=== PATIENT | male | born 1970 | race Caucasian/White ===

== ENCOUNTER → 2019-10-20 | Outpatient (CLI) | payer OTHER ==
[~2019-10-20] MED LIST: FLEXERIL PO; IBUPROFEN 800800 M1 PO; PERCOCET 5-3251 EACH PO
--- NOTE | 2019-10-27 16:05 | SLEEP ---
[address] [address] SLEEP STUDY REPORT Name: LUCERO JIANG Room: [facility]#: [id number] Admission: 10/20/19 Attend Phys: Mahnaz Omer Discharge: Date of : 70 Report #: [id number] THIS REPORT FOR: //name// CC: Jean Marie Mcdaniel DO This study has been reviewed in its entirety by a board certified sleep specialist DATE OF SERVICE: 10/21/2019 HOME SLEEP STUDY REFERRING PHYSICIAN: Dr. Jean Marie Mcdaniel. HISTORY: The patient is a 49-year-old who weighs 252 pounds with a BMI of 34.2. The patient's Lugoff score was 13. The patient underwent home sleep study performed by [facility]. Total recording time was 465 minutes. During the night study, the patient had 280 obstructive apneas, 67 central apneas, 210 mixed apneas and 24 hypopneas. The patient's apnea hypopnea index was 76.7 per hour. Supine index was the same. Nocturnal oximetry study revealed an average oxygen saturation of 88% with a lowest of 64%. A 231 minutes were spent and oxygen saturation less than 90%. Another 139 minutes with saturation of less than 85% and 66 minutes with saturation of less than 80%. Mean heart rate 61 beats per minute with a maximum of 95 beats per minute. IMPRESSION: 1. Severe sleep apnea-hypopnea syndrome at an AHI of 76.7 per hour. 2. Severe nocturnal hypoxia secondary to obstructive sleep apnea. RECOMMENDATIONS: 1. The patient would benefit from in-lab CPAP titration study. 2. Once the patient is optimally treated, then follow up in 4-6 weeks to assess compliance with CPAP and to document clinical improvement. 3. Weight loss is strongly advised. 4. Avoid COMM[employer]ICATION[employer]OR depressants. 5. Cautioned regarding driving until sleep apnea is effectively treated. <ELECTRONICALLY SIGNED> By: Humberto Jc MD 10/27/19 1605 [id number] Jc MD /nt
== END ==
LOC: M.SLEEPLAB 09:30
DX: G47.30 Sleep apnea, unspecified (principal); G47.34 Idiopathic sleep related nonobstructive alveolar hypoventilation

== ENCOUNTER → 2019-11-06 | Outpatient (CLI) | payer OTHER ==
--- NOTE | 2019-11-09 00:11 | SLEEP ---
[address] [address] SLEEP STUDY REPORT Name: LUCERO JIANG Room: [facility]#: [id number] Admission: 11/06/19 Attend Phys: Mahnaz Omer Discharge: Date of : 70 Report #: [id number] THIS REPORT FOR: //name// CC: Jean Marie Mcdaniel DO This study has been reviewed in its entirety by a board certified sleep specialist DATE OF SERVICE: 11/06/2019 ATTENDING PHYSICIAN: Dr. Jean Marie Mcdaniel. The patient is 49 years old who weighs 250 pounds. The patient had a home sleep study and was found to have severe SHO at an AHI of 72 per hour. The patient was referred for CPAP titration study performed at [facility]. During the night study, the patient spent 362 minutes in bed and slept for 123 minutes with a poor sleep efficiency of 34%. Sleep latency was 28 minutes with a REM latency of 222 minutes. Sleep architecture showed increased stage 1 sleep, normal stage 2 sleep, normal slow wave and reduced REM sleep, which was only 4.5% of the total sleep time. EKG monitoring revealed an average heart rate of 63 beats per minute. No sustained arrhythmias observed. PLMS were seen at an index of 20 per hour with only 1.5 per hour caused EEG arousals. The patient was started on CPAP at a pressure of 7 cm water and titrated up to 8 cm water. However, the patient was switched to BiPAP to improve the patient's tolerance to positive pressure therapy as well as few central apneas were observed as well. The patient's BiPAP pressure was increased all the way up to 19/15. It was a difficult titration study due to limited sleep. At the final pressure of 19/15, the patient slept for 18.5 minutes. The patient did not have REM sleep but supine sleep throughout. The patient's AHI was reduced to 6.5 per hour and oxygen saturation remained above 95%. I would recommend that the patient should be placed on a BiPAP pressure of 20/16 to make sure AHI remains less than 5 per hour. IMPRESSION: 1. Severe sleep apnea diagnosed by previous sleep study. 2. Nocturnal hypoxia secondary to obstructive sleep apnea, but resolved with CPAP. 3. Mild to moderate periodic limb movements without any significant EEG arousals. This does [place] [address] SLEEP STUDY REPORT Name: LUCERO JIANG Room: [facility]#: [id number] Admission: 11/06/19 Attend Phys: Mahnaz Omer Discharge: Date of : 70 Report #: [id number] 4. Significantly reduced sleep efficiency of 34% resulting from sleep maintenance insomnia. RECOMMENDATIONS: 1. BiPAP at a pressure of 20/16 should be used on a nightly basis. 2. Follow up in 4-6 weeks to assess compliance with BiPAP and to document clinical improvement. 3. Weight loss is strongly advised. 4. Avoid CRM COORDINATOR depressants. 5. Cautioned regarding driving until symptoms of sleep apnea resolve with the use of BiPAP. 6. If the patient's insomnia persists despite effective use of BiPAP, then he should be further evaluated and treated for his insomnia according to the etiology. <ELECTRONICALLY SIGNED> By: Humberto Jc MD 11/09/19 0011 [id number] Hetal Jc MD /nt
== END ==
LOC: M.SLEEPLAB 20:50
DX: G47.33 Obstructive sleep apnea (adult) (pediatric) (principal); G47.30 Sleep apnea, unspecified; R09.02 Hypoxemia

== ENCOUNTER → 2020-05-18 | Outpatient (CLI) | payer OTHER | LOC: M.MRI 08:04 | PROVIDERS: ATTEND Family Medicine | DX: S83.242A Other tear of medial meniscus, current injury, left knee, initial encounter (principal); G89.29 Other chronic pain; R22.40 Localized swelling, mass and lump, unspecified lower limb; M25.762 Osteophyte, left knee; M17.12 Unilateral primary osteoarthritis, left knee; X58.XXXA Exposure to other specified factors, initial encounter; Y93.89 Activity, other specified; Y92.89 Other specified places as the place of occurrence of the external cause; Y99.8 Other external cause status ==

== ENCOUNTER → 2021-06-27 | Outpatient (CLI) | payer OTHER | LOC: M.CT 07:35 | PROVIDERS: ATTEND Family Medicine | DX: Z13.6 Encounter for screening for cardiovascular disorders (principal); I25.10 Atherosclerotic heart disease of native coronary artery without angina pectoris ==

== ENCOUNTER → 2021-07-10 | Outpatient (CLI) | payer OTHER | LOC: M.CT 07-06 11:30 | PROVIDERS: ATTEND Family Medicine | DX: K76.0 Fatty (change of) liver, not elsewhere classified (principal); N40.0 Benign prostatic hyperplasia without lower urinary tract symptoms; E16.1 Other hypoglycemia; R79.89 Other specified abnormal findings of blood chemistry ==